=== PATIENT | female | born 1955 | race Caucasian/White ===

== ENCOUNTER 2016-11-13 08:22 | Emergency (ER) | payer OTHER ==
[~2016-11-13] VITALS: Ht 157.5 cm; Wt 73.6 kg
[~2016-11-13 08:22] MED LIST: ATARAX,VISTARIL25 MG PO; PEPCID40 MG PO; PREDNISONE20 MG PO
[2016-11-13 09:07] LABS: HEMATOCRIT 42.7 % (36.0-46.0); MCH 29.4 PG (29.0-34.0); MCHC 33.5 G/DL (30.0-36.0); MCV 87.9 FL (83-99); MEAN PLAT.VOLUME 10.6 uM^3 (9.5-12.4); PLATELET COUNT 379 K/uL (156-360); RBC DIS.WIDTH-CV 13.2 % (11.8-14.6); RBC DIS.WIDTH-SD 41.8 % (39-53); RED BLOOD COUNT 4.86 M/uL (3.80-5.20); WHITE BLOOD COUNT 8.5 K/uL (4.1-10.2)
[2016-11-13 09:21] LABS: CHLORIDE 103 mEq/L (99-109); POTASSIUM 4.3 mEq/L (3.7-5.4); SODIUM 138 mEq/L (136-147)
[2016-11-13 09:23] LABS: GLUCOSE 86 mg/dL (70-99)
[2016-11-13 09:24] LABS: ANION GAP 11 MEQ/L (2-14)
[2016-11-13 09:27] LABS: GFR ESTIMATE (CALCULATED) > 59 mL/min/
[2016-11-13 09:28] LABS: UREA NITROGEN (BUN) 11 mg/dL (9-23)
[2016-11-13 09:30] LABS: TROP-I INTERPRETATION NEGATIVE; TROPONIN-I < 0.01 ng/mL (0.0-0.30)
[2016-11-13 10:22] LABS: TOTAL BILIRUBIN 0.4 mg/dL (0.0-1.0)
[2016-11-13 10:23] LABS: ALKALINE PHOSPHATASE 71 IU/L (3-129); D-DIMER ELISA 0.47 mg/L FEU (< 0.57)
[2016-11-13 10:25] LABS: DIRECT BILIRUBIN 0.1 mg/dL (0.0-0.3)
[2016-11-13 10:26] LABS: LIPASE 20 U/L (1.0-51.0)
[2016-11-13] MEDS ORDERED: CARAFATE1 GM PO (13:09)
[2016-11-13] MEDS ORDERED: ZANTAC300 MG PO (13:09)
[2016-11-13] MEDS ORDERED: REGLAN10 MG PO (13:10)
[2016-11-13 13:11] LABS: TROP-I INTERPRETATION NEGATIVE; TROPONIN-I < 0.01 ng/mL (0.0-0.30)
[2016-11-13 13:44] VITALS: BP 138/91
== END 2016-11-13 13:46 | disposition home or self-care (01) ==
LOC: EME 08:22
PROVIDERS: Emergency Medicine
DX: K21.9 Gastro-esophageal reflux disease without esophagitis (principal); R10.13 Epigastric pain; Z88.6 Allergy status to analgesic agent
CPT/HCPCS: 71020; 76705; 80048; 80076; 83690; 84484; 85027; 85379; 93005; 99281; 99285; J2765; S0028

== ENCOUNTER → 2016-12-19 | Outpatient (CLI) | payer OTHER ==
[~2016-12-19] VITALS: Ht 157.5 cm; Wt 74.9 kg
[~2016-12-19] MED LIST changes: +ANTIVERT25 MG PO; +CARAFATE1 GM PO; +CELEXA20 MG PO; +CLARITIN,ALAVAR10 MG PO; +FLONASE16 G1 BOTH NARES; +IRON325 MG PO; +PROTONIX40 MG PO; +REGLAN10 MG PO; +ZANTAC300 MG PO
== END | disposition home or self-care (01) ==
LOC: AMB 08:53
DX: R13.10 Dysphagia, unspecified (principal); Z53.09 Procedure and treatment not carried out because of other contraindication; K44.9 Diaphragmatic hernia without obstruction or gangrene; K29.70 Gastritis, unspecified, without bleeding; K29.80 Duodenitis without bleeding; K25.9 Gastric ulcer, unspecified as acute or chronic, without hemorrhage or perforation; R10.13 Epigastric pain; R73.09 Other abnormal glucose; E78.5 Hyperlipidemia, unspecified; D50.9 Iron deficiency anemia, unspecified; Z80.1 Family history of malignant neoplasm of trachea, bronchus and lung; Z82.49 Family history of ischemic heart disease and other diseases of the circulatory system; Z87.891 Personal history of nicotine dependence; Z88.5 Allergy status to narcotic agent
CPT/HCPCS: 88305; 88342 TC; J2250